=== PATIENT | female | born 1975 | race Caucasian/White ===

== ENCOUNTER 2023-07-29 18:42 | Emergency (ER) | payer OTHER, SELFPAY ==
--- NOTE | 2023-07-29 18:43 | ED.EAR ---
HPI - Ear Problem General Chief complaint: Ear Stated complaint: left ear Time Seen by Provider: 07/29/23 18:43 Source: patient Mode of arrival: ambulatory Limitations: no limitations History of Present Illness HPI Narrative: Santa is a 47-year-old female patient presenting to the clinic today with complaints of left ear pain x6 days. She reports she recently has been swimming in the [place] in [place] Related Data Home Medications Medication Instructions Recorded Confirmed alprazolam 2 mg tablet 2 mg PO DAILY 07/29/23 07/29/23 blood sugar diagnostic ([facility] 07/29/23 07/29/23 Ultra Test strips) buspirone 10 mg tablet 10 mg PO BID 07/29/23 07/29/23 divalproex 250 mg tablet,delayed 250 mg PO DAILY 07/29/23 07/29/23 release divalproex 500 mg tablet,delayed 500 mg PO HS 07/29/23 07/29/23 release dulaglutide 3 mg/0.5 mL 0.5 mg subcut WEEKLY 07/29/23 07/29/23 subcutaneous pen injector ([facility]) duloxetine 60 mg capsule,delayed 120 mg PO DAILY 07/29/23 07/29/23 release glipizide 10 mg tablet, extended 10 mg PO DAILY 07/29/23 07/29/23 release 24 hr [facility] 07/29/23 07/29/23 Plus Lancet) metformin 500 mg tablet,extended 1,000 mg PO DAILY 07/29/23 07/29/23 release 24 hr prazosin 2 mg capsule 2 mg PO HS 07/29/23 07/29/23 zolpidem 5 mg tablet 5 mg PO HS PRN Insomnia 07/29/23 07/29/23 Allergies Allergy/AdvReac Type Severity Reaction Status Date / Time fentanyl AdvReac Severe Hallucinati Verified 07/29/23 19:06 ng chlorpromazine AdvReac Intermediate Palpitation Verified 07/29/23 19:05 [From Thorazine] s morphine AdvReac Intermediate Gastrointestinal Verified 07/29/23 19:06 Upset clarithromycin [From Biaxin] AdvReac Mild Hives Verified 07/29/23 19:04 Penicillins AdvReac Mild Hives Verified 07/29/23 19:05 Review of Systems Review of Systems: Pertinent positives per HPI. Patient denies any fever, chills, rash, headache, visual changes, dizziness, cough, runny nose, sore throat, shortness of breath, chest pain, palpitations, nausea, vomiting, diarrhea, constipation, abdominal pain, or any urinary issues. PMFSH Comments At the time of my signature, I reviewed and agree with the nursing past medical, surgical, social, and family history. There is no relevant family history pertinent to the patient complaint. Exam Narrative: General: Well-developed, morbidly obese, in no apparent distress Head: Normocephalic, atraumatic Eyes: Pupils equally round and reactive to light bilaterally, EOM intact, sclera and conjunctive clear, no discharge, lids normal Ears: TMs intact and clear, right ear canals clear, left ear canal red and swollen pain to palpation over the tragus and pulling of the pinna, no drainage, grossly hearing normal. Nose: Nares patent, no discharge, no inflammation, no sinus tenderness. Mouth: Oropharynx without lesions or masses, good dentition, MMM. Neck: Supple, trachea midline, no enlargement of anterior or posterior cervical nodes, no thyroid masses or goiter palpable. Cardio: Regular rate and rhythm, s1 and s2 normal, no murmur appreciated. Resp: Clear to auscultation bilaterally anteriorly and posteriorly, no rhonchi, rales, wheezing or rubs Course Course Emergency Course: Portions of this record may have been created with voice recognition software. Level of Care: Express Care Visit Vital Signs Vital signs: Vital Signs Temperature 36.4 C 07/29/23 18:54 Pulse Rate 80 07/29/23 18:54 Respiratory Rate 16 07/29/23 18:54 Blood Pressure 127/78 07/29/23 18:54 Pulse Oximetry 100 07/29/23 18:54 Oxygen Delivery Room Air 07/29/23 18:54 Temperature 36.4 C 07/29/23 18:54 Pulse Rate 80 07/29/23 18:54 Respiratory Rate 16 07/29/23 18:54 Blood Pressure 127/78 07/29/23 18:54 Pulse Oximetry 100 07/29/23 18:54 Oxygen Delivery Room Air 07/29/23 18:54 Vital signs reviewed Medical Decision Zohreh
[2023-07-29 18:54] VITALS: BP 127/78; PULSE 80; RESP 16; TEMP 36.4; O2SAT 100
== END 2023-07-29 19:07 | disposition home or self-care (01) ==
PROVIDERS: Emergency Provider Nurse Practitioner Family
DX: H60.312 Diffuse otitis externa, left ear (principal); E11.9 Type 2 diabetes mellitus without complications; Z79.84 Long term (current) use of oral hypoglycemic drugs; F41.9 Anxiety disorder, unspecified; F32.A Depression, unspecified; Z86.16 Personal history of COVID-19
CPT/HCPCS: 99203; G0463